=== PATIENT | female | born 1980 | race Caucasian/White ===

== ENCOUNTER 2016-08-05 18:38 | Emergency (ER) | payer BC | END 2016-08-05 21:54 | disposition home or self-care (01) | LOC: ER 18:38 | DX: J02.0 Streptococcal pharyngitis (principal); R06.02 Shortness of breath; K21.9 Gastro-esophageal reflux disease without esophagitis; E07.9 Disorder of thyroid, unspecified; F17.210 Nicotine dependence, cigarettes, uncomplicated; Z98.51 Tubal ligation status | CPT/HCPCS: 87651 ==